=== PATIENT | female | born 1995 | race Native Hawaiian/Other Pacific Islander ===

== ENCOUNTER 2017-08-27 09:24 | Emergency (ER) | payer BC, OTHER ==
[~2017-08-27] VITALS: Ht 152.4 cm; Wt 86.2 kg
[2017-08-27 09:30] VITALS: TEMP 98.6
[2017-08-27 10:01] LABS: PLATELET COUNT 129 K/uL (152-353)
[2017-08-27 10:03] LABS: POTASSIUM 3.6 mmol/L (3.6-5.2)
[2017-08-27 13:11] VITALS: BP 109/67
== END 2017-08-27 13:10 | disposition short-term general hospital (02) ==
LOC: ED 09:24
PROVIDERS: Emergency Medicine
DX: R06.00 Dyspnea, unspecified (principal); Z3A.35 35 weeks gestation of pregnancy; R00.0 Tachycardia, unspecified
CPT/HCPCS: 36415; 36600; 80053; 81000; 82805; 85027; 85379; 87081; 87804; 87880; 93005; 94664; 94760; 99283; J1100

== ENCOUNTER 2017-08-27 13:15 | Outpatient (CLI) | payer BC, OTHER | END 2017-08-27 14:33 | disposition short-term general hospital (02) | LOC: AMB 13:15 | DX: R06.00 Dyspnea, unspecified (principal); Z3A.35 35 weeks gestation of pregnancy; R00.0 Tachycardia, unspecified | CPT/HCPCS: A0425; A0427 ==

== ENCOUNTER 2020-02-17 10:33 | Outpatient (CLI) | payer OTHER | END 2020-02-17 22:29 | disposition home or self-care (01) | LOC: LABW 10:33 | DX: N91.2 Amenorrhea, unspecified (principal) | CPT/HCPCS: 36415; 84702 ==